=== PATIENT | female | born 1990 | race Caucasian/White ===

== ENCOUNTER 2019-04-10 03:08 | Inpatient (IN) | payer OTHER ==
[2019-04-10] MEDS ORDERED: Butorphanol Tartrate 1 MG/ML VIAL SLOW IVP PRN ×2 (03:48→05:13)
[2019-04-10] MEDS ORDERED: hydrALAZINE 20 MG/ML VIAL SLOW IVP PRN ×3 (03:54→13:18)
[2019-04-10 04:33] LABS: Amnisure Test No Membranes Rupture (No Rupture)
[2019-04-10 04:34] LABS: Amnisure Internal Control QC ACCEPTABLE (ACCEPTABLE)
[2019-04-10] MEDS ORDERED: HYDROcodone/Acetaminophen 5/325 mg Tablet PO PRN (05:13)
[2019-04-10] MEDS ORDERED: Lidocaine 1% (PF) 30 ML VIAL SC PRN (05:13)
[2019-04-10] MEDS ORDERED: Ondansetron PF 4 MG/2 ML Vial IVP PRN ×3 (05:13→13:18)
[2019-04-10] MEDS ORDERED: Ibuprofen 800 MG TAB PO PRN (05:13)
[2019-04-10] MEDS ORDERED: NS / Oxytocin 40 units/1000ml 1,000 ML IV PRN (05:13)
[2019-04-10] MEDS ORDERED: Lactated Ringer's 1,000 ML IV SCH (05:15)
[2019-04-10] MEDS ORDERED: Fentanyl 4 mcg/Bup 0.1% Cadd 100 ML ONE (06:06)
[2019-04-10 06:11] LABS: Hemoglobin 9.6 g/dL (12.0-16.0); Mean Corpuscular HGB CONC 32.9 g/dL (32.0-36.0); Mean Corpuscular Hemoglobin 24.5 pg (27.0-31.0); Mean Corpuscular Volume 74.5 fL (78.0-98.0); Mean Platelet Volume 10.3 fL (7.4-10.4); Platelet Count 156 thou/uL (130-400); RBC Distribution Width 13.2 % (11.5-14.5); Red Blood Cell (RBC) Count 3.91 mill/uL (4.20-5.40); White Blood Cell (WBC) Count 11.6 thou/uL (4.8-10.8)
[2019-04-10 06:30] LABS: HBSAg Index 0.29 S/CO (0-0.99); Hep B Surf Ag Non-Reactive S/CO (NonReactive)
[2019-04-10] MEDS ORDERED: Fentanyl 100 MCG/2 ML VIAL ONE (06:47)
[2019-04-10] MEDS ORDERED: Promethazine HCl 25 MG/ML VIAL IM PRN (07:22)
[2019-04-10] MEDS ORDERED: ePHEDrine/0.9% NaCl/PF SYRINGE 50 mg/10 ml SLOW IVP PRN (07:22)
[2019-04-10] MEDS ORDERED: Naloxone HCl 0.4 mg/ml Vial IVP PRN ×2 (07:22)
[2019-04-10] MEDS ORDERED: Lactated Ringer's 500 ML IV PRN (07:22)
[2019-04-10 07:28] LABS: Syphilis Antibody Nonreactive (Nonreactive); Syphilis Antibody Index 0.03 S/CO (<1.00 Non-Reactive)
[2019-04-10] MEDS ORDERED: Communication Order-Pharmacy FS SCH (07:30)
[2019-04-10] MEDS ORDERED: Fentanyl 4 mcg/Bupivacaine 0.1% Cassette 100 ML EPIDURAL SCH (07:30)
[2019-04-10] MEDS ORDERED: NS w/ Oxytocin 10 units 500 ML ONE (10:22)
[2019-04-10] MEDS: Lactated Ringer's 1,000 ML IV SCH (10:32)
[2019-04-10] MEDS ORDERED: NS w/ Oxytocin 10 units 500 ML IVPB SCH (11:00)
[2019-04-10] MEDS ORDERED: diphenhydrAMINE 25 MG CAP PO PRN (13:18)
[2019-04-10] MEDS ORDERED: Milk Of Magnesia 30 ML UDCUP PO PRN (13:18)
[2019-04-10] MEDS ORDERED: Benzocaine-Menthol 82.5 ML CAN TOP PRN (13:18)
[2019-04-10] MEDS ORDERED: Misoprostol 200 MCG TAB VAG PRN (13:18)
[2019-04-10] MEDS ORDERED: Acetaminophen/Codeine 30-300mg Tablet PO PRN ×2 (13:18)
[2019-04-10] MEDS ORDERED: Bisacodyl 10 MG SUPP PR PRN (13:18)
[2019-04-10] MEDS ORDERED: Adacel (T-DAP) 0.5 ML SYRINGE IM ONE (13:18)
[2019-04-10] MEDS ORDERED: Preparation H Ointment 28 GM TUBE PR PRN (13:18)
[2019-04-10] MEDS ORDERED: NS / Oxytocin 40 units/1000ml 1,000 ML IV SCH (13:30)
[2019-04-10 13:48] LABS: Hemoglobin 8.8 g/dL (12.0-16.0); Mean Corpuscular HGB CONC 31.8 g/dL (32.0-36.0); Mean Corpuscular Hemoglobin 24.1 pg (27.0-31.0); Mean Corpuscular Volume 75.6 fL (78.0-98.0); Mean Platelet Volume 10.1 fL (7.4-10.4); Platelet Count 132 thou/uL (130-400); RBC Distribution Width 13.2 % (11.5-14.5); Red Blood Cell (RBC) Count 3.67 mill/uL (4.20-5.40); White Blood Cell (WBC) Count 12.4 thou/uL (4.8-10.8)
[2019-04-10] MEDS: Ibuprofen 800 MG TAB PO SCH ×2 (17:07→22:56)
[2019-04-10] MEDS ORDERED: Bupivacaine/Epinephrine 0.25% 30 ML VIAL ONE (18:00)
[2019-04-10] MEDS: Docusate Calcium (SURFAK) 240 MG CAP PO SCH (22:56)
[2019-04-11] MEDS: Ferrous Sulfate 325 MG TAB PO SCH ×2 (06:37→09:30)
[2019-04-11] MEDS: Ibuprofen 800 MG TAB PO SCH ×2 (06:39→13:41)
[2019-04-11] MEDS: Lactated Ringer's 1,000 ML IV SCH (08:07)
[2019-04-11] MEDS: Docusate Calcium (SURFAK) 240 MG CAP PO SCH (09:30)
[2019-04-11] MEDS ORDERED: Sulfameth/Trimethoprim DS 800-160mg TAB PO SCH ×2 (10:30→21:00)
[2019-04-11 11:31] VITALS: BP 107/59; TEMP 98.4
== END 2019-04-11 15:45 | disposition home or self-care (01) | DRG 807 ==
LOC: L&D/OP 03:08 → L&D 06:28 → 3SW 16:20
PROVIDERS: ADMIT Obstetrics & Gynecology; ATTEND Obstetrics & Gynecology
PROC: 10E0XZZ Delivery of Products of Conception, External Approach (ICD-10-PCS; principal; 2019-04-10)
DX: O75.89 Other specified complications of labor and delivery (principal); Z37.0 Single live birth; Z3A.37 37 weeks gestation of pregnancy; B95.62 Methicillin resistant Staphylococcus aureus infection as the cause of diseases classified elsewhere
CPT/HCPCS: 36415; 51702; 59025; 84112; 85027; 86780; 86850; 86870; 86900; 86901; 87081; 87340; 99285; J2590; J3010